=== PATIENT | female | born 1995 | race Two or more races ===

== ENCOUNTER 2018-10-01 07:53 | Outpatient (CLI) | payer OTHER | END 2018-10-01 08:17 | disposition home or self-care (01) | LOC: LAB 07:53 | DX: C75.1 Malignant neoplasm of pituitary gland (principal); D35.2 Benign neoplasm of pituitary gland ==

== ENCOUNTER 2018-10-01 09:37 | Outpatient (CLI) | payer OTHER | END 2018-10-01 09:50 | disposition home or self-care (01) | LOC: MRI 09:37 | DX: C75.1 Malignant neoplasm of pituitary gland (principal); D35.2 Benign neoplasm of pituitary gland | CPT/HCPCS: 70553 ==